=== PATIENT | female | born 1980 | race Caucasian/White ===

== ENCOUNTER 2018-01-30 20:18 | Emergency (ER) | payer OTHER ==
[~2018-01-30] VITALS: Ht 157.5 cm; Wt 74.3 kg
[2018-01-30 20:49] LABS: BASOPHILS # (AUTO) 0.04 x10^3/uL (0-0.1); BASOPHILS % (AUTO) 0 % (0-1); EOSINOPHILS % (AUTO) 1 % (1-7); LYMPHOCYTES # (AUTO) 3.73 x10^3/uL (1-3.4); LYMPHOCYTES % (AUTO) 44 % (22-44); MD NO; MEAN CORPUSCULAR HEMOGLOBIN 32.5 pg (27.0-34.8); MEAN CORPUSCULAR VOLUME 92.7 fL (80-100); MEAN PLATELET VOLUME 8.6 fL (7.4-10.4); MONOCYTES # (AUTO) 0.55 x10^3/uL (0.2-0.8); MONOCYTES % (AUTO) 6 % (2-9); NEUTROPHILS # (AUTO) 4.14 x10^3/uL (1.8-6.8); NEUTROPHILS % (AUTO) 48 % (42-75); PLATELET COUNT 262 x10^3/uL (130-400); RED BLOOD COUNT 4.23 x10^6/uL (3.82-5.3); RED CELL DISTRIBUTION WIDTH 12.6 % (9.6-15.2)
[2018-01-30 20:59] LABS: ALBUMIN 3.8 g/dL (3.4-5.0); ANION GAP 5 mmol/L (5-15); CALCIUM 8.8 mg/dL (8.5-10.1); CHLORIDE 110 mmol/L (98-107)
[2018-01-30] MEDS ORDERED: IBUPROFEN 200 MG TABLET PO ONE (21:00)
[2018-01-30 21:05] LABS: CREATININE 0.81 mg/dL (0.55-1.02)
[2018-01-30] MEDS ORDERED: IBUPROFEN 200 MG TABLET ONE (21:48)
[2018-01-30 23:00] VITALS: BP 92/56
== END 2018-01-30 23:13 | disposition home or self-care (01) ==
LOC: ED 21:49
DX: O20.9 Hemorrhage in early pregnancy, unspecified (principal); Z3A.09 9 weeks gestation of pregnancy; N93.8 Other specified abnormal uterine and vaginal bleeding
CPT/HCPCS: 36415; 76830; 80048; 82040; 84703; 85025; 99285